=== PATIENT | female | born 1985 | race Caucasian/White ===

== ENCOUNTER 2019-01-15 18:44 | Emergency (ER) | payer OTHER ==
[~2019-01-15] VITALS: Ht 149.9 cm; Wt 44.9 kg
[2019-01-15 18:50] VITALS: Ht 149.9 cm; Wt 44.9 kg
[2019-01-15 21:19] VITALS: BP 129/85
== END 2019-01-15 21:19 | disposition home or self-care (01) ==
LOC: ED 18:44
DX: L03.115 Cellulitis of right lower limb (principal); R21 Rash and other nonspecific skin eruption; R07.89 Other chest pain

== ENCOUNTER 2019-01-28 13:10 | Emergency (ER) | payer OTHER ==
[~2019-01-28] VITALS: Ht 152.4 cm; Wt 45.8 kg
[2019-01-28 13:14] VITALS: Ht 152.4 cm; Wt 45.8 kg
[2019-01-28 16:08] VITALS: BP 125/90
== END 2019-01-28 16:08 | disposition home or self-care (01) ==
LOC: ED 13:10
DX: N63.20 Unspecified lump in the left breast, unspecified quadrant (principal)
CPT/HCPCS: 76642